=== PATIENT | male | born 1970 | race African-American/Black ===

== ENCOUNTER 2016-11-24 14:50 | Emergency (ER) | payer MEDICAID ==
[~2016-11-24] VITALS: Ht 180.3 cm; Wt 57.0 kg
[2016-11-24] MEDS ORDERED: ONDANSETRON HCL 4MG/2ML VIAL IV PRN (16:30)
[2016-11-24] MEDS: MORPHINE SULFATE 4 MG/ML CPJ (NOT FOR IM USE) IV PRN ×2 (16:56→19:06)
[2016-11-24 19:52] VITALS: BP 176/100
== END 2016-11-24 21:06 | disposition home or self-care (01) ==
LOC: ER 14:50
DX: S09.90XA Unspecified injury of head, initial encounter (principal); M54.5 Low back pain; F17.200 Nicotine dependence, unspecified, uncomplicated; W11.XXXA Fall on and from ladder, initial encounter; Y93.89 Activity, other specified; Y92.89 Other specified places as the place of occurrence of the external cause; Y99.8 Other external cause status
CPT/HCPCS: 72170; 72192; 96374; 96375; 96376; 99284; J2270; J2405; Z7610